=== PATIENT | female | born 1960 | race Caucasian/White ===

== ENCOUNTER 2016-07-10 09:30 | Emergency (ER) | payer MEDICARE ==
[~2016-07-10] VITALS: Ht 160 cm; Wt 68.9 kg
[~2016-07-10 09:30] MED LIST: ASPIRIN325 MG PO; BYSTOLIC5 MG PO; CELLCEPT500 MG PO; CHLOROTHIAZIDE250 MG PO; CHLORTHALIDONE25 MG PO; PLAVIX75 M1 PO; PRINIVIL10 MG PO; PROTONIX40 MG PO; XANAX1 MG PO
== END 2016-07-10 19:13 | disposition short-term general hospital (02) ==
LOC: ER 09:30
DX: R07.89 Other chest pain (principal); I10 Essential (primary) hypertension; F41.9 Anxiety disorder, unspecified; L13.1 Subcorneal pustular dermatitis; Z79.899 Other long term (current) drug therapy; Z87.891 Personal history of nicotine dependence
CPT/HCPCS: A9270; J2060; J2270; J2405

== ENCOUNTER 2016-07-18 16:57 | Emergency (ER) | payer MEDICARE ==
[~2016-07-18] VITALS: Ht 157.5 cm; Wt 72.6 kg
== END 2016-07-18 19:06 | disposition short-term general hospital (02) ==
LOC: ER 16:57
DX: I10 Essential (primary) hypertension (principal); F41.9 Anxiety disorder, unspecified; L13.1 Subcorneal pustular dermatitis; Z79.899 Other long term (current) drug therapy
CPT/HCPCS: J2060